=== PATIENT | male | born 1945 | race Caucasian/White ===

== ENCOUNTER 2017-03-10 23:12 | Inpatient (IN) | payer OTHER ==
[~2017-03-10] VITALS: Ht 182.9 cm; Wt 118.8 kg
[~2017-03-10 23:12] MED LIST: ACCUPRIL; ACCUPRIL40 MG PO; ATORVASTATIN CA40 MG PO; CLONAZEPAM PO; CLONAZEPAM1 MG PO; DILANTIN100 M1 PO; DILANTIN100 MG PO; ISO10 PO; KEP500 PO; LIPITOR; MASON25 MG PO; METOPROLOL SUCC25 M1 PO; METOPROLOL TART25 M1 PO; METOPROLOL25 MG PO; METOPROLOL50 MG PO; MOTRIN800 MG PO; NAPROSYN375 MG PO; NAPROXEN220 MG PO; NOR10 PO; PHENYTOIN SODI100 M1 PO; PRILOSEC OTC20 M1 PO; PRILOSEC OTC20 MG PO; QUINAPRIL40 MG PO; SIMVASTATIN40 MG PO; SPIRONOLACTONE25 MG PO; TEG200 PO; ZOCOR40 MG PO; ZONEGRAN50 MG; ZONISAMIDE100 M1 PO; ZONISAMIDE100 MG PO
[2017-03-10 23:43] LABS: BASOPHIL % 0.7 % (0-2); PLATELET COUNT 165 x10^3mcL (130-400); RED CELL DISTRIBUTION WIDTH 13.5 % (11.5-14.5)
[2017-03-10 23:58] LABS: CALCIUM 8.6 mg/dL (8.5-10.1); CARBON DIOXIDE 32.3 mmol/L (21-32); CHLORIDE SERUM 103 mmol/L (98-107); CREATININE SERUM 0.9 mg/dL (0.7-1.3); GLUCOSE SERUM 97 mg/dL (74-106); SODIUM SERUM 141 mmol/L (136-145)
[2017-03-11] VITALS (11 sets, daily range): BP systolic 153–192; BP diastolic 65–84
[2017-03-11 00:02] LABS: ALBUMIN 3.9 g/dL (3.4-5.0); ALKALINE PHOSPHATASE 64 U/L (46-116); ALT/SGPT 19 U/L (16-63); AST/SGOT 19 U/L (15-37); BILIRUBIN TOTAL 0.2 mg/dL (0.20-1.00); CHOLESTEROL 175 mg/dL (<200); HDL CHOLESTEROL 52 mg/dL (40-60); MAGNESIUM 2.1 mg/dL (1.8-2.4); TOTAL PROTEIN, SERUM 7.8 g/dL (6.4-8.2)
[2017-03-11 00:22] LABS: microscopic required? NO
[2017-03-11 00:38] LABS: UA SPECIFIC GRAVITY <=1.005 (1.005-1.035); urine erythrocyte NEGATIVE (NEGATIVE)
[2017-03-11] MEDS ORDERED: MUCINEX600 MG PO (01:45)
[2017-03-11] MEDS ORDERED: ONDANSETRON4 M3 SL (01:46)
[2017-03-11] MEDS ORDERED: MOM PO (01:47)
[2017-03-11 02:41] LABS: T3 TOTAL 0.84 ng/mL
[2017-03-11 02:48] LABS: CHOLESTEROL/HDL RATIO 3.7; PHOSPHOROUS 3.4 mg/dL (2.5-4.9)
[2017-03-11 02:49] LABS: FREE T4 0.77 ng/dL (0.76-1.46); FREE THYROXINE INDEX 1.6 ug/dL (1.4-4.5); T4(THYROXINE) 4.8 ug/dL (4.7-13.3)
[2017-03-11] MEDS ORDERED: CLONIDINE HCL0.1 MG PO (03:02)
[2017-03-11 06:05] LABS: AMPHETAMINE QUAL UR NONE DETECTED (NEG <=1000)
[2017-03-12 05:55] VITALS: BP 153/83
[2017-03-12 06:33] LABS: CALCIUM 8.3 mg/dL (8.5-10.1); CARBON DIOXIDE 26.6 mmol/L (21-32); CHLORIDE SERUM 105 mmol/L (98-107); CREATININE SERUM 0.7 mg/dL (0.7-1.3); GLUCOSE SERUM 91 mg/dL (74-106); PHOSPHOROUS 2.9 mg/dL (2.5-4.9); POTASSIUM SERUM 3.5 mmol/L (3.5-5.1); SODIUM SERUM 141 mmol/L (136-145)
[2017-03-12 07:12] LABS: BASOPHIL % 0.5 % (0-2); PLATELET COUNT 161 x10^3mcL (130-400); RED CELL DISTRIBUTION WIDTH 13.6 % (11.5-14.5)
[2017-03-12 09:56] VITALS: BP 150/66
[2017-03-12 14:07] VITALS: BP 167/84
[2017-03-12] MEDS ORDERED: V10 PO (14:29)
[2017-03-12 14:51] VITALS: BP 167/84
[2017-03-12] MEDS ORDERED: BACTROBAN21 (17:48)
[2017-03-12] MEDS ORDERED: HIB240 TP (17:48)
== END 2017-03-12 16:02 | disposition home health service (06) | DRG 304 ==
LOC: ED 23:12 → DU 03-11 01:06
PROVIDERS: Emergency Medicine; ADMIT Family Medicine
DX: I16.0 Hypertensive urgency (principal); I50.43 Acute on chronic combined systolic (congestive) and diastolic (congestive) heart failure; I42.0 Dilated cardiomyopathy; I11.0 Hypertensive heart disease with heart failure; G40.909 Epilepsy, unspecified, not intractable, without status epilepticus; E78.2 Mixed hyperlipidemia; G90.9 Disorder of the autonomic nervous system, unspecified; Z95.0 Presence of cardiac pacemaker; Z68.35 Body mass index [BMI] 35.0-35.9, adult; Z79.1 Long term (current) use of non-steroidal anti-inflammatories (NSAID); Z90.49 Acquired absence of other specified parts of digestive tract; Z88.0 Allergy status to penicillin; Z82.49 Family history of ischemic heart disease and other diseases of the circulatory system
CPT/HCPCS: 83880; 84439; 97110-GP; 97116-GP; 97530-GP; J3490; J7030; Q0092

== ENCOUNTER 2017-06-18 05:26 | Inpatient (IN) | payer OTHER ==
[~2017-06-18] VITALS: Ht 182.9 cm; Wt 117.7 kg
[~2017-06-18 05:26] MED LIST changes: +BACTROBAN21; +CLONIDINE HCL0.1 MG PO; +HIB240 TP; +MOM PO; +MUCINEX600 MG PO; +ONDANSETRON4 M3 SL; +V10 PO
--- NOTE | 2017-06-18 05:28 | NUR ---
PT BIB [facility] FOR SOB X 30 MIN. UPON ARRIVAL PT IS ON CPAP WITH WOB OBVIOUS IN GROSS MOVEMENT OF THE ABD. LUNGS AUSCULTATE DIMINISHED TO THE LEFT AND RIGHT WITH SLIGHTLY MORE AIRMOVEMENT ON THE RIGHT. PT IS AWAKE, ABLE TO ANSWER WITH ONE WORK SKIN IS PALE WITH DUSKY EXTREMITIES. PITTING EDEMA +1 NOTED TO BLE. PT PLACED ON BIPAP, PADS PLACED AND FULL MONITORS CONNECTED. BUE IV ACCESS ESTABLISHED PEDAL PULSES PRESENT SHANON. PT HAS HX OF COPD, CHF, SEIZURE, AND HTN. DR COHEN AT BEDSIDE FOR MSE AND PT EVALUATION IN ED T1.
--- NOTE | 2017-06-18 06:00 | NUR ---
ASSUMED CARE FROM [facility]EE[facility] MORALES. PT W/MARKED RESP IMPROVEMENT. SKINS: PINK, DRY, DECREASED RESP EFFORT, SCATTERED I/E-CRACKLES/RHONCHI UPPER POST LUNG CHRISTIANSON. DIMINISHED AT [place] AND BASES. TRACH MIDLINE. BIPAP AT 12/6, RATE 30, FIO2-100% PT DECLINES CERVANTES CATH AT THIS TIME. TO ATTEMPT AT A LATER TIME. PT PRESENTS DIAPERED. ABDOMEN SOFT SUPPLE, NON-TENDER OR DISTENDED. NO PALP OR MASSES. BILAT PEDAL EDEMA NOTED. LASIX GIVEN. NTG DRIP HELD. LEVAQUIN.
[2017-06-18] MEDS ORDERED: NOR10 PO (06:08)
[2017-06-18] MEDS ORDERED: BACLOFEN10 MG PO (06:09)
[2017-06-18] MEDS ORDERED: TEGRETOL200 MG PO (06:09)
[2017-06-18] MEDS ORDERED: KAPVAY0.1 MG PO (06:09)
[2017-06-18] MEDS ORDERED: ENALAPRIL MALEA10 MG PO (06:10)
[2017-06-18] MEDS ORDERED: FLORANEX1 CT2 PO (06:11)
[2017-06-18] MEDS ORDERED: ISOSORBIDE DINI20 MG PO (06:12)
[2017-06-18] MEDS ORDERED: IBUPROFEN400 MG PO (06:12)
[2017-06-18] MEDS ORDERED: FUROSEMIDE40 MG PO (06:12)
[2017-06-18] MEDS ORDERED: KEPPRA500 MG PO (06:13)
[2017-06-18] MEDS ORDERED: GOOD SENSE OMEP20 MG PO (06:14)
[2017-06-18] MEDS ORDERED: METOPROLOL TART25 M1 PO (06:14)
[2017-06-18] MEDS ORDERED: DILANTIN100 MG PO (06:15)
[2017-06-18] MEDS ORDERED: ACCUPRIL40 MG PO (06:15)
[2017-06-18 06:16] LABS: CALCIUM 8.6 mg/dL (8.5-10.1); CARBON DIOXIDE 26.1 mmol/L (21-32); CHLORIDE SERUM 104 mmol/L (98-107); GLUCOSE SERUM 279 mg/dL (74-106); POTASSIUM SERUM 3.5 mmol/L (3.5-5.1); SODIUM SERUM 140 mmol/L (136-145)
[2017-06-18] MEDS ORDERED: SIMVASTATIN10 M1 PO (06:16)
[2017-06-18] MEDS ORDERED: ALDACTONE25 MG PO (06:16)
[2017-06-18] MEDS ORDERED: ZONEGRAN100 MG PO (06:16)
[2017-06-18] MEDS ORDERED: PULMICORT180 MCG/Ac INH (06:17)
[2017-06-18] MEDS ORDERED: CLONAZEPAM1 MG PO (06:17)
[2017-06-18 06:18] LABS: BASOPHIL % 0.5 % (0-2); PLATELET COUNT 210 x10^3mcL (130-400); RED CELL DISTRIBUTION WIDTH 13.9 % (11.5-14.5)
[2017-06-18] MEDS ORDERED: ZOF4 PO (06:18)
[2017-06-18] MEDS ORDERED: ANAPROX DS550 MG PO (06:18)
[2017-06-18] MEDS ORDERED: PROAIR RES117 MCG/Ac IH (06:19)
[2017-06-18] MEDS ORDERED: GOOD NEIGH1200 MG/15 PO (06:19)
[2017-06-18 06:30] LABS: ALBUMIN 3.5 g/dL (3.4-5.0); ALKALINE PHOSPHATASE 66 U/L (46-116); ALT/SGPT 21 U/L (16-63); AST/SGOT 19 U/L (15-37); BILIRUBIN TOTAL 0.3 mg/dL (0.20-1.00); TOTAL PROTEIN, SERUM 8.1 g/dL (6.4-8.2)
[2017-06-18 06:32] LABS: CK-MB 0.5 ng/mL (0-3.6)
--- NOTE | 2017-06-18 06:35 | NUR ---
PT REMAINS STABLE. DECLINES INSERTION OF FC. MRSA SWAB OBTAINED AND SENT. PT DOMINICK HOB 45 DEGREES. NO FURTHER ORDERS AT THIS TIME.
--- NOTE | 2017-06-18 06:45 | NUR ---
PT REMAINS STABLE. RT AT BS. DECREASED RESP EFFORT NOTED.
--- NOTE | 2017-06-18 06:53 | NUR ---
REPORTED LACTIC ACID 2.[address] LUIS. NO FURTHER ORDERS GIVEN. PT REMAINS STABLE.
--- NOTE | 2017-06-18 07:07 | NUR ---
PER NOC SHIFT REPEAT ABG IN 1 HOUR POST PLACING PT ON BIPAP PER DR. VALLE VERBAL ORDER, ABG RESULTS SHOWN TO DR. VALLE AND VERBAL ORDER RECEIVED TO INCREASE IPAP TO 15 CMH2O AND RN WINNIE MADE AWARE.
--- NOTE | 2017-06-18 07:19 | NUR ---
REPORT CALLED TO JOHN MORALES. PENDING TRANSPORT TO UNIT. CONTINUED CARE ENDORSED BEATRIS MORALES/YADIRA RN FOR TRANSPORT TO FLOOR. A
--- NOTE | 2017-06-18 07:40 | NUR ---
PATIENT RECEIVED FROM ED VIA [facility]. PT IS AAOX4. TELE MONITOR 32. SCDS IN PLACE. PATIENT HAS 2+ EDEMA TO BLE. SPO2 AT 100% ON BIPAP. PT STATES THAT HE USES OXYGEN AT HOME. BS ACTIVE. PT STATES HE HAD LAST BM YESTERDAY. PT HAS GENERALIZED WEAKNESS. PURPLISH DISCOLORATION TO BLE AROUND THE SHINS. DENIES PAIN AT THIS TIME. PT HAS IV IN RAC AND LH, PATENT AND WNL. CALL LIGHT WITHIN REACH. WILL CONTINUE TO MONITOR.
[2017-06-18 07:45] LABS: T3 TOTAL 0.88 ng/mL
[2017-06-18 07:49] LABS: MAGNESIUM 2.1 mg/dL (1.8-2.4); PHOSPHOROUS 5.7 mg/dL (2.5-4.9)
[2017-06-18 07:50] LABS: CHOLESTEROL/HDL RATIO 3.5
[2017-06-18 08:00] LABS: FREE T4 0.75 ng/dL (0.76-1.46); FREE THYROXINE INDEX 1.7 ug/dL (1.4-4.5); T4(THYROXINE) 5.4 ug/dL (4.7-13.3)
[2017-06-18 08:50] VITALS: BP 135/80
--- NOTE | 2017-06-18 08:50 | NUR ---
SATURATION WITHIN NORMAL LIMITS, TITRATED FIO2 TO 60%, WILL CONTINUE TO MONITOR.
[2017-06-18 09:02] VITALS: BP 170/76
--- NOTE | 2017-06-18 10:20 | NUR ---
SATURATION WITHIN NORMAL LIMITS, TITRATED FIO2 TO 50%, WILL CONTINUE TO MONITOR.
--- NOTE | 2017-06-18 12:15 | NUR ---
SATURATION WITHIN NORMAL LIMITS, TITRATED FIO2 TO 40%, WILL CONTINUE TO MONITOR.
[2017-06-18 13:20] VITALS: BP 140/67
--- NOTE | 2017-06-18 15:00 | NUR ---
PT TAKEN OFF OF BIPAP AT THIS TIME AND PLACED ON A NASAL CANNULA 5 L/MIN, SATURATION NOTED TO BE 90% WHILE ON ROOM AIR BUT IMPROVED TO 96% AFTER PLACING PT ON NASAL CANNULA, NO RESP DISTRESS NOTED, WILL CONTINUE TO MONITOR.
[2017-06-18 15:12] LABS: microscopic required? YES; urine erythrocyte 1+ (NEGATIVE)
--- NOTE | 2017-06-18 15:20 | NUR ---
PATIENT RESPIRATIONS EVEN AND UNLABORED AT THIS TIME. PATIENT DENIES DIZZINESS OR NAUSEA. NO SIGNS OF RESPIRATORY DISTRESS. SP02 AT 97%. CALL LIGHT WITHIN REACH. WILL CONTINUE TO MONITOR.
[2017-06-18 15:26] LABS: AMPHETAMINE QUAL UR NONE DETECTED (NEG <=1000)
[2017-06-18 17:20] VITALS: BP 140/64
--- NOTE | 2017-06-18 19:20 | NUR ---
REC'D PT FROM DAY NURSE. CONTACT PREC IN PLACE. AAOX4, SPEECH CLEAR, FOLLOWS COMMANDS. NO SIGNS OF DISTRESS NOTED. BREATHING EVEN/UNLABORED ON 2.5L O2 VIA NC, SPO2 98%. SITTING IN HIGH FOWLERS POSITION. TELE 32. DENIES CP, DIZZINESS, OR PALPTATIONS. PM TO UPPER L CHEST. PITTING EDEMA BLE. DENIES ABD PAIN, TENDERNESS, OR N/V. INCONTINENT. GEN WEAKNESS. AMB WITH WALKER AT HOME. DISCOLORATION TO BLE. DENIES PAIN OR DISCOMFORT AT THIS TIME. IV TO RAC AND LH FLUSHED AND PATENT. SITES WNL. CALL LIGHT WITHIN REACH, BED AT LOWEST POSITION. WILL CONTINUE TO MONITOR.
--- NOTE | 2017-06-18 19:27 | NUR ---
REPORT GIVEN TO NIGHT NURSE. AT THIS TIME THE PATIENT IS RESTING IN BED. NO SIGNS OF ACUTE DISTRESS. PT USING NASAL CANNULA, RESPIRATIONS EVEN AND UNLABORED, NO SIGNS OF RESPIRATORY DISTRESS. IVS ARE SALINE LOCKED. SCDS IN PLACE. CALL LIGHT WITHIN REACH. ALL SAFETY MEASURES IN PLACE.
[2017-06-18 21:00] VITALS: BP 138/60
--- NOTE | 2017-06-18 21:00 | NUR ---
PT REFUSING LACTULOSE. INFORMED PT HE IS GETTING LACTULOSE BC HIS AMMONIA IS ELEVATED, AND THE LACTULOSE WILL HELP REDUCE THESE LEVELS. PT VERBALIZED UNDERSTANDING BUT DOES NOT WANT TO HAVE A BM TONIGHT. WILL TAKE THE DOSE IN THE AM.
--- NOTE | 2017-06-18 21:55 | NUR ---
LINENS AND GOWN CHANGED. PT CLEANED. RECHECKED BP TO GIVE LOPRESSOR. BP 108/52, HR 66. PT REFUSED MED AT THIS TIME STATING HIS BP IS LOW. BREATHING EVEN/UNLABORED ON 2.5 L O2 VIA NC. SITTING WITH HOB UP WATCHING TV. WILL CONTINUE TO MONITOR.
--- NOTE | 2017-06-19 02:03 | NUR ---
PT RESTING IN BED WITH EYES CLOSED. LAYING IN HIGH FOWLERS POSITION. BIPAP IN PLACE. CHIN DOWN. NO SIGNS OF DISTRSES NOTED. BREATHING EVEN/UNLABORED ON RA. CALL LIGHT WITHIN REACH, BED AT LOWEST POSITION. WILL CONTINUE TO MONITOR.
--- NOTE | 2017-06-19 02:30 | NUR ---
BIPAP WAS REMOVED BY RT PER PT'S REQUEST. PT DENIES RESP DISTRESS OR SOB. BREATHING EVEN/UNLABORED ON 2.5L O2 VIA NC. EYES CLOSED, CHIN DOWN, HOB UP. WILL CONTINUE TO MONITOR.
--- NOTE | 2017-06-19 02:43 | NUR ---
BIPAP WAS REMOVED BY RT PER PT'S REQUESTING. PT DENIES RESP DISTRESS OR SOB. BREATHING EVEN/UNLABORED ON 2.5L O2 VIA NC. EYES CLOSED, CHIN DOWN, HOB UP. WILL CONTINUE TO MONITOR.
--- NOTE | 2017-06-19 03:09 | NUR ---
PT AWAKE. C/O CONGESTION. UNABLE TO COUGH UP PHLEGM. REQUESTING SOMEONE TO "TAP HIS BACK" TO HELP RELEASE PHLEGM. DR. HART MADE AWARE. ASKED IF HE WOULD LIKE TO ORDER CPT PER PT'S REQUEST OR JUST ORDER MUCOMYST/MUCINEX. PT UPDATED.
--- NOTE | 2017-06-19 03:28 | NUR ---
REC'D ORDER FOR CPT, MUCOMYST, AND ROBITUSSIN. RT MADE AWARE OF CPT ORDER. CALLED PHARMACY TO HAVE MEDS VERIFIED.
--- NOTE | 2017-06-19 04:00 | NUR ---
RT IN TO ADMINISTER CPT AND MUCOMYST.
[2017-06-19 05:59] VITALS: BP 103/50
--- NOTE | 2017-06-19 06:40 | NUR ---
PT RESTING IN BED. CHANGED AND CLEANED PT. NO COMPLAINTS AT THIS TIME. DENIES SOB. REPORTS FEELING LESS CONGESTED. BREATHING EVEN/UNLABORED ON 2.5L O2 VIA NC. PT SITTING IN HIGH FOLWERS POSITION. COMFORTABLE. CALL LIGHT WITHIN REACH, BED AT LOWEST POSITION, SZ PREC IN PLACE. WILL ENDORSE TO DAY NURSE.
[2017-06-19 06:41] LABS: BASOPHIL % 0.5 % (0-2); PLATELET COUNT 133 x10^3mcL (130-400); RED CELL DISTRIBUTION WIDTH 13.7 % (11.5-14.5)
[2017-06-19 06:54] LABS: CALCIUM 8.2 mg/dL (8.5-10.1); CARBON DIOXIDE 31.8 mmol/L (21-32); CHLORIDE SERUM 103 mmol/L (98-107); GLUCOSE SERUM 110 mg/dL (74-106); PHOSPHOROUS 3.7 mg/dL (2.5-4.9); POTASSIUM SERUM 3.7 mmol/L (3.5-5.1); SODIUM SERUM 140 mmol/L (136-145)
--- NOTE | 2017-06-19 07:28 | NUR ---
PT RECEIVED AND SEEN. AAOX4. APEARS CALM. TELE [address] PT HAS SCDS IN PLACE. EDEMA TO BLE 1+. LUNGS SOUND DIMINISHED BILATERALLY IN BASES, PATIENT ON 2.5L OXYGEN VIA NC. NO SIGNS OF RESPIRATORY DISTRESS. SPO2 AT 98%. BOWEL SOUNDS ACTIVE. PATIENT HAS URINE INCONTINENCE. DENIES PAIN. IV IN RAC AND LH APPEAR WNL, PATENT. CALL LIGHT WITHIN REACH. WILL CONTINUE TO MONITOR.
--- NOTE | 2017-06-19 08:09 | NUR ---
PATIENT HAS USED BEDSIDE COMMODE TO TRY AND HAVE A BOWEL MOVEMENT. USED BSC WITH TWO PERSON ASSIST. PT GAIT WAS UNSTEADY. PT DID NOT HAVE BOWEL MOVEMENT AT THIS TIME. RETURNED TO BED.
[2017-06-19 08:45] VITALS: BP 131/71
--- NOTE | 2017-06-19 13:00 | NUR ---
PATIENT HAS BEEN RESTING IN BED. NO SIGNS OF ACUTE DISTRESS. NO SIGNS OF RESPIRATORY DISTRESS. TELE MONITOR IN PLACE. SCDS IN PLACE. CALL LIGHT WITHIN REACH. WILL CONTINUE TO MONITOR.
[2017-06-19 14:11] VITALS: BP 117/81
[2017-06-19 17:10] VITALS: BP 137/65
--- NOTE | 2017-06-19 19:28 | NUR ---
REPORT GIVEN TO NOC NURSE. AT THIS TIME THE PATIENT IS RESTING IN BED. AAOX4. RESPIRATIONS EVEN AND UNLABORED ON 2L OXYGEN VIA NC. NO SIGNS OF RESPIRATORY DISTRESS. CALL LIGHT WITHIN REACH. ALL SAFETY MEASURES IN PLACE.
--- NOTE | 2017-06-19 20:17 | NUR ---
PT IS A/O X4, VERBAL RESPONSIVE, ABLE TO TELL WHAT HE NEEDS. LUNG SOUND DIMINSHED SHANON BASE, PT IS ON 2.5L/MIN O2 VIA N/C, PO2 98%, PT DENY ANY RESPIRATORY DISTRESS AT THIS TIME, PT IS ON TELE 32, NSR, DENY ANY CHEST PAIN OR DISCOMFORT, BOWEL SOUND PRESNT ALL 4 QUADRANTS, ROUND, SOFT, DENY ANY N/V AT THIS TIME, PEDAL PULSE PRESENT BOTH FEET, +1 EDEMA BLE, IV AT RIGHT AC AND LEFT HAND, NO LEAKING, NO INFILTRATION. ALL ADLS ASSIST, ALL NEED MET, CALL LIGHT IN REACH. WILL CONTINUE TO MONITOR.
[2017-06-19 21:30] VITALS: BP 143/60
--- NOTE | 2017-06-19 22:15 | NUR ---
RECEIVED PT. AA&O X4. PT SITTING UP IN BED. NO SOB ON O2 2L VIA NC. NO C/O PAIN. NO DISTRESS NOTED. IV ON RAC AND LEFT HAND, INTACT. SAFETY PRECAUTIONS IN PLACE. BED IN LOWEST POSITION. SIDE RAIL PADS IN PLACE. INSTRUCTED PT TO CALL IF ASSISTANCE IS NEEDED. CALL LIGHT WITHIN REACH.
[2017-06-20] VITALS (7 sets, daily range): BP systolic 109–149; BP diastolic 51–75
--- NOTE | 2017-06-20 00:55 | NUR ---
PT SLEEPING AT THIS TIME. NO SOB ON BIPAP. NO DISTRESS NOTED. SAFETY MEASURES IN PLACE. CALL LIGHT WITHIN REACH. WILL CONTINUE TO MONITOR.
--- NOTE | 2017-06-20 05:29 | NUR ---
PT SLEPT WELL DURING SHIFT. ON BIPAP. NO RESPIRATORY DISTRESS NOTED. SAFETY MEASURES MAINTAINED. BED ON LOWEST POSITION. SIDE RAILS UP X2. CALL LIGHT WITHIN REACH.
[2017-06-20 06:52] LABS: CALCIUM 8.1 mg/dL (8.5-10.1); CARBON DIOXIDE 31.4 mmol/L (21-32); CHLORIDE SERUM 102 mmol/L (98-107); CREATININE SERUM 1.1 mg/dL (0.7-1.3); GLUCOSE SERUM 97 mg/dL (74-106); POTASSIUM SERUM 3.7 mmol/L (3.5-5.1); SODIUM SERUM 137 mmol/L (136-145)
[2017-06-20 06:53] LABS: BASOPHIL % 0.2 % (0-2); PLATELET COUNT 123 x10^3mcL (130-400); RED CELL DISTRIBUTION WIDTH 13.4 % (11.5-14.5)
--- NOTE | 2017-06-20 07:36 | NUR ---
RECEIVED PT FROM NIGHT NURSE IN NO ACUTE DISTRESS. RESPIRATIONS EVEN AND UNLABORED ON 2L VIA RA. AAOX4. SEIZURE PRECAUTIONS IN PLACE. CONTACT PRECAUTIONS IN PLACE. IVF INFUSING AT BEDSIDE. ATB'S INFUSING AT BEDSIDE. BED IN LOWEST POSITION. CALL LIGHT WITHIN REACH. WILL CONTINUE TO MONITOR.
--- NOTE | 2017-06-20 12:44 | NUR ---
PT RESTING IN BED IN NO ACUTE DISTRESS. RESPIRATIONS EVEN AND UNALBORED ON 2L VIA NC. AAOX4. ATB'S INFUSING AT BEDSIDE. SEIZURE PRECAUTIONS IN PLACE. BED IN LOWEST POSITION. CALL LIGHT WITHIN REACH. WILL CONTINUE TO MONITOR.
--- NOTE | 2017-06-20 15:57 | NUR ---
PT TO BE TRANSFERED TO [facility] LATER TODAY. DAUGHTER IS AWARE OF PENDINF TRANSFER.
[2017-06-20] MEDS ORDERED: ROC1I IV (17:46)
[2017-06-20] MEDS ORDERED: LAC PO (17:47)
[2017-06-20] MEDS ORDERED: TEGRETOL200 MG PO (17:49)
--- NOTE | 2017-06-20 18:57 | NUR ---
REPORT GIVEN TO YAA HATHAWAY OF [facility]
--- NOTE | 2017-06-20 18:59 | NUR ---
PT RESTING IN BED IN NO ACUTE DISTRESS. RESPIRATIONS EVEN AND UNLABORED ON 2L VIA RA. AAOX4. SEIZURE PRECAUTIONS IN PLACE. IV HEPLOCKED. BED IN LOWEST POSITION. CALL LIGHT WITHIN REACH. WILL ENDORSE TO NIGHT NURSE.
--- NOTE | 2017-06-20 19:15 | NUR ---
PT A/O X4. SEIZURE PRECAUTIONS IN PLACE. TELE #32, NSR AT 68 WITH BBB, DENIES CHEST PAIN. PULSES PALPABLE, 1+ EDEMA NOTED TO BLE. DIMINISHED LUNG SOUNDS AUSCULTATED TO BLL, ON 2L NC WITH HUMIDIFER, PT DENIES SOB. ABD SOFT AND ROUND, BOWEL TONES ACTIVE, DENIES N/V. PT MAY HAVE EPISODES OF INCONTINENCE; PT USES URINAL TO VOID AT TIMES. GENERALIZED WEAKNESS. PT STATES HE USES A WALKER AT HOME. DISCOLORATION NOTED TO BLE; BRUISE NOTED TO RLQ. PT DENIES PAIN AT THIS TIME. PT IS SALINE LOCKED TO THE RAC; PATENT AND INTACT. BED IN LOWEST SETTINGS, SIDE RAILS UP X2, CALL LIGHT WITHIN REACH. WILL CONTINUE TO MONITOR.
--- NOTE | 2017-06-20 21:30 | NUR ---
INFORMED PT THAT TRANSFER VEHICLE IS RUNNING LATE AT THIS TIME. PT STATES UNDERSTANDING. NO RESP DISTRESS NOTED. WILL CONTINUE TO MONITOR.
--- NOTE | 2017-06-20 23:16 | NUR ---
TELE MONITOR #32 RETURNED TO [employer]. PT TRANSFERRED AT THIS TIME TO [facility] IN STABLE CONDITION. NO RESP DISTRESS NOTED, BREATHING IS EVEN AND UNLABORED, PT DENIES PAIN AT THIS TIME.
== END 2017-06-20 23:17 | DRG 871 ==
LOC: ED 05:26 → DU 06:13
PROVIDERS: Emergency Medicine; ADMIT Family Medicine
PROC: 5A09357 Assistance with Respiratory Ventilation, Less than 24 Consecutive Hours, Continuous Positive Airway Pressure (ICD-10-PCS; principal; 2017-06-18)
DX: A41.9 Sepsis, unspecified organism (principal); J69.0 Pneumonitis due to inhalation of food and vomit; I50.43 Acute on chronic combined systolic (congestive) and diastolic (congestive) heart failure; N17.0 Acute kidney failure with tubular necrosis; J96.01 Acute respiratory failure with hypoxia; E72.20 Disorder of urea cycle metabolism, unspecified; I42.0 Dilated cardiomyopathy; N39.0 Urinary tract infection, site not specified; I11.0 Hypertensive heart disease with heart failure; G40.909 Epilepsy, unspecified, not intractable, without status epilepticus; E78.5 Hyperlipidemia, unspecified; Z68.36 Body mass index [BMI] 36.0-36.9, adult; Z88.0 Allergy status to penicillin; E02 Subclinical iodine-deficiency hypothyroidism; E83.39 Other disorders of phosphorus metabolism; Z95.0 Presence of cardiac pacemaker; E66.01 Morbid (severe) obesity due to excess calories; G47.33 Obstructive sleep apnea (adult) (pediatric); E83.51 Hypocalcemia; D64.9 Anemia, unspecified; B96.20 Unspecified Escherichia coli [E. coli] as the cause of diseases classified elsewhere
CPT/HCPCS: 36600; 83880; 84439; 94150; J0696; J1940; J1956; J3490; J7030; J7620; J7626